=== PATIENT | male | born 1975 | race Two or more races ===

== ENCOUNTER → 2016-07-10 | Outpatient (CLI) | payer OTHER ==
[2016-07-10 23:36] LABS: BASO # 0.1 x10^3/uL (0.0-0.2); BASO % 1 % (0-3); EOS % 1 % (0-3); HEMATOCRIT 46.3 % (39.0-53.0); HEMOGLOBIN 15.8 g/dL (13.0-17.5); LYMPH # 1.9 x10^3/uL (1.0-4.8); LYMPH % 23 % (24-48); MEAN CORPUSCULAR HEMOGLOBIN 30 pg (25-35); MEAN CORPUSCULAR HGB CONC 34 g/dL (31-37); MEAN CORPUSCULAR VOLUME 89 fL (79-100); MONO # 0.8 x10^3/uL (0.0-1.1); MONO % 10 % (0-9); NEUT # 5.7 x10^3uL (1.8-7.7); NEUT % 67 % (31-73); PLATELET COUNT 186 x10^3/uL (140-400); RED BLOOD COUNT 5.21 x10^6/uL (4.30-5.70); RED CELL DISTRIBUTION WIDTH 13.3 % (11.5-14.5); WHITE BLOOD COUNT 8.5 x10^3/uL (4.0-11.0)
[2016-07-10 23:45] LABS: ALBUMIN 3.8 g/dL (3.4-5.0); CREATININE 0.9 mg/dL (0.7-1.3); GFR 92.5; TOTAL BILIRUBIN 0.6 mg/dL (0.2-1.0); TOTAL PROTEIN 7.7 g/dL (6.4-8.2)
== END | disposition home or self-care (01) ==
LOC: LAB 22:59
PROVIDERS: ATTEND Nurse Practitioner Family
DX: I82.409 Acute embolism and thrombosis of unspecified deep veins of unspecified lower extremity (principal)
CPT/HCPCS: 36415; 80053; 85027

== ENCOUNTER → 2016-07-12 | Outpatient (CLI) | payer OTHER ==
[~2016-07-12] MED LIST: CLIN300C8 PO
== END | disposition home or self-care (01) ==
LOC: SPEC 14:18
PROVIDERS: ATTEND Nurse Practitioner Family
DX: I82.409 Acute embolism and thrombosis of unspecified deep veins of unspecified lower extremity (principal)
CPT/HCPCS: 36415; 85379

== ENCOUNTER 2016-08-22 17:42 | Emergency (ER) | payer OTHER ==
[2016-08-22 18:03] VITALS: BP 114/67
--- NOTE | 2016-08-22 18:13 | PHYS DOC ---
Past History Past Medical History: No Pertinent History Past Surgical History: Appendectomy Smoking: Quit Greater Than 1 Year Alcohol Use: None Drug Use: None Social History Narrative: Inmate [facility] Adult General Chief Complaint Chief Complaint: HAND PROBLEM HPI HPI Patient is a 41 year old male who presents with injury to the left 3rd finger. He is an inmate at the [facility] and on Sunday injured his left long digit. He states he is playing soccer and caught it on the fence. Denies human bite wound. It was not repaired and he presents today because of increased pain and swelling. Right hand Dominant. Review of Systems Review of Systems Constitutional: Denies fever or chills Musculoskeletal: Left long finger with delayed presentation of wound. Laceration to volar aspect at DIP. NVI distally. No evidence of tendon injury. Integument: Wound as noted Neurologic: Denies headache, focal weakness or sensory changes Allergies Allergies Allergies Coded Allergies Type Severity Reaction Last Updated Verified naproxen Allergy Intermediate 08/22/16 Yes Physical Exam Physical Exam Constitutional: Well developed, well nourished, no acute distress, non-toxic appearance. Skin: Warm, dry, no erythema, no rash. Delayed presentation of laceration. Extremities: Left hand long finger: volar aspect laceration with localized swelling; no purulent drainage. NVI distally. No evidence of retained foreign body Neurologic: Alert and oriented X 3, normal motor function, normal sensory function, no focal deficits noted. Psychologic: Affect normal, judgement normal, mood normal. Current Patient Data Vital Signs Vital Signs Date Time Temp Pulse Resp B/P (MAP) Pulse Ox O2 Delivery O2 Flow Rate FiO2 08/22/16 18:03 97.7 70 16 98 Room Air BP 114/67 Radiology/Procedures Radiology/Procedures Xray left hand: no retained foreign body; no fracture; no gas in the subcut tissue. Course & Med Decision Making Course & Med Decision Making Pertinent Imaging studies reviewed. (See chart for details) Patient has delayed presentation of the wound. It is now infected and swollen soft tissue cannot be reapproximated. Will need to heal by secondary intention. We will will be cleansed splinted and patient placed on antibiotics. Follow-up with medical care on site. Dragon Disclaimer Dragon Disclaimer This chart was dictated in whole or in part using Voice Recognition software in a busy, high-work load, and often noisy Emergency Department environment. It may contain unintended and wholly unrecognized errors or omissions. Departure Departure: Impression: Primary Impression: Laceration of finger with delay in treatment Additional Impression: Cellulitis of left middle finger Disposition: HOME, SELF-CARE Condition: RELEASED IN CUSTODY Referrals: TONYA CARTAGENA [facility] LIAISON (PCP) Scripts Clindamycin Hcl (CLINDAMYCIN HCL) 300 Mg Capsule 1 CAP PO TID, #30 CAP Prov: PEDRO CELESTE MD 08/22/16 Problem Qualifiers PEDRO CELESTE MD August 22, 2016 18:13
[2016-08-22] MEDS ORDERED: CLIN300C8 PO (18:53)
[2016-08-22] MEDS: CLINDAMYCIN HCL 150 MG CAPSULE PO ONE (18:56)
--- NOTE | 2016-08-23 08:00 | RAD ---
Left hand, 3 views, 08/22/2016: History: Laceration, swelling There is moderate soft tissue swelling involving the middle finger. No underlying fracture or destructive bony lesion is seen. No radiopaque foreign body is evident in the soft tissues. IMPRESSION: No acute bony abnormality is detected.
== END 2016-08-22 19:05 | disposition home or self-care (01) ==
LOC: ER 17:42 → EEVIPCON 17:42 → ER 19:05
DX: S61.213A Laceration without foreign body of left middle finger without damage to nail, initial encounter (principal); L03.012 Cellulitis of left finger; Z87.891 Personal history of nicotine dependence; Z88.6 Allergy status to analgesic agent; W23.0XXA Caught, crushed, jammed, or pinched between moving objects, initial encounter; Y93.66 Activity, soccer; Y99.8 Other external cause status; Y92.89 Other specified places as the place of occurrence of the external cause
CPT/HCPCS: 29130; 73130; 99284-25

== ENCOUNTER → 2019-08-23 | Outpatient (CLI) | payer OTHER ==
[2019-08-23 17:40] LABS: BASO % 1 % (0-3); EOS # 0.1 x10^3/uL (0.0-0.7); EOS % 2 % (0-3); HEMOGLOBIN 15.9 g/dL (13.0-17.5); LYMPH # 2.3 x10^3/uL (1.0-4.8); LYMPH % 26 % (24-48); MEAN CORPUSCULAR HEMOGLOBIN 31 pg (25-35); MEAN CORPUSCULAR HGB CONC 34 g/dL (31-37); MEAN CORPUSCULAR VOLUME 91 fL (79-100); MONO # 0.5 x10^3/uL (0.0-1.1); MONO % 6 % (0-9); NEUT # 5.7 x10^3uL (1.8-7.7); NEUT % 66 % (31-73); PLATELET COUNT 274 x10^3/uL (140-400); RED BLOOD COUNT 5.19 x10^6/uL (4.30-5.70); RED CELL DISTRIBUTION WIDTH 13.4 % (11.5-14.5); WHITE BLOOD COUNT 8.7 x10^3/uL (4.0-11.0)
[2019-08-23 17:44] LABS: CALCIUM 9.1 mg/dL (8.5-10.1); CREATININE 0.8 mg/dL (0.7-1.3); GFR 104.1; POTASSIUM 4.3 mmol/L (3.5-5.1)
[2019-08-23 17:50] LABS: ALBUMIN 4.2 g/dL (3.4-5.0); ALBUMIN/GLOBULIN RATIO 1.2 (1.0-1.7); TOTAL BILIRUBIN 0.4 mg/dL (0.2-1.0); TOTAL PROTEIN 7.8 g/dL (6.4-8.2)
== END | disposition home or self-care (01) ==
LOC: SPEC 17:07
PROVIDERS: ATTEND General Practice
DX: R10.9 Unspecified abdominal pain (principal)
CPT/HCPCS: 36415; 80053; 82977; 85025; 86140